=== PATIENT | male | born 1990 | race Caucasian/White ===

== ENCOUNTER 2018-02-01 10:40 | Emergency (ER) | payer OTHER ==
[2018-02-01] MEDS ORDERED: Lidocaine 1% MPF* 2 ML VIAL INJ ONE (11:50)
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
[2018-02-01 12:29] VITALS: BP 99/57
== END 2018-02-01 12:52 | disposition home or self-care (01) ==
LOC: UCCORT 10:40
DX: W26.8XXA Contact with other sharp object(s), not elsewhere classified, initial encounter (principal); Y93.9 Activity, unspecified; Y92.9 Unspecified place or not applicable; S61.210A Laceration without foreign body of right index finger without damage to nail, initial encounter; Z88.0 Allergy status to penicillin; Z88.5 Allergy status to narcotic agent; Z88.8 Allergy status to other drugs, medicaments and biological substances
CPT/HCPCS: 99212; G0463

== ENCOUNTER 2019-02-19 12:21 | Emergency (ER) | payer SELFPAY ==
--- NOTE | 2019-02-19 13:41 | ED ---
Allergic Reaction/Systemic - HPI Summary HPI Summary: Patient arrives by EMS from [facility]. Patient states at 11:50 AM he was stung by a bee on the left hand. The hand immediately began to swell and become red. He states he has had anaphylactic reactions in the past and his last EpiPen use was 2 years ago. He currently does not have an EpiPen. He was able to go to [facility] and at 11:54 AM was given epi. At 11:58 AM, patient was given 50mg Benadryl all IM. EMS obtained IV access en route. Patient states he was having symptoms just to the left hand, but denies any short of breath, throat pain, feelings of throat closing up, difficulty with airway or breathing or other symptoms. He states he feels well at this time after being given the medications. - History of Current Complaint Chief Complaint: EDAllergicReaction Time Seen by Provider: 02/19/19 12:22 Hx Obtained From: Patient Onset/Duration: Sudden Onset Timing: Constant Severity Initially: Moderate Severity Currently: Moderate Pain Intensity: 0 Pain Scale Used: 0-10 Numeric Location: Discrete @ - left hand sting/bee sting Alleviating Factor(s): Antihistamines, Epinephrine Associated Signs And Symptoms: Positive: Negative - Related Hx Possible Reaction To: Insect - Allergies/Home Medications Allergies/Adverse Reactions: Allergies Allergy/AdvReac Type Severity Reaction Status Date / Time codeine Allergy Vomiting Verified 02/19/19 12:31 Penicillins Allergy Vomiting Verified 02/19/19 12:31 promethazine Allergy Palpitation Verified 02/19/19 12:31 s bee stings Allergy Difficulty Uncoded 02/01/18 11:30 Breathing grass and mold Allergy Difficulty Uncoded 02/01/18 11:30 Breathing PMH/Surg Hx/FS Hx/Imm Hx Previously Healthy: Yes Endocrine/Hematology History: Denies: Hx Diabetes Respiratory History: Reports: Hx Asthma - Surgical History Surgery Procedure, Year, and Place: sweat gland in face, ear tubes, tonsils, right arm surgery, spleen mesh - Immunization History Hx Pertussis Vaccination: No Immunizations Up to Date: Yes Infectious Disease History: No Infectious Disease History: Denies: Traveled Outside the [place] in Last 30 Days - Family History Known Family History: Positive: Hypertension, Diabetes - Social History Occupation: Employed Full-time Lives: With Family Alcohol Use: Occasionally Hx Substance Use: No Substance Use Type: Reports: None Hx Tobacco Use: No Smoking Status (MU): Never Smoked Tobacco Review of Systems Negative: Fever, Chills, Fatigue, Skin Diaphoresis Negative: Palpitations, Chest Pain Negative: Shortness Of Breath, Cough Genitourinary: Negative Positive: no symptoms reported, see HPI Negative: Arthralgia, Myalgia Positive: Other - small erytheamtous area to the L hand with slight swelling Neurological: Negative All Other Systems Reviewed And Are Negative: Yes Physical Exam Triage Information Reviewed: Yes Vital Signs On Initial Exam: Initial Vitals Temp Pulse Resp BP Pulse Ox 98.5 F 68 19 124/68 99 02/19/19 12:26 02/19/19 12:26 02/19/19 12:02/19/19 12:02/19/19 12:26 Vital Signs Reviewed: Yes Appearance: Positive: Well-Appearing, Well-Nourished Skin: Positive: Warm, Skin Color Reflects Adequate Perfusion, Other - erythematous area to the L hand Head/Face: Positive: Normal Head/Face Inspection Eyes: Positive: EOMI, SHANTA, Conjunctiva Clear Neck: Positive: Supple, No Lymphadenopathy Respiratory/Lung Sounds: Positive: Clear to Auscultation, Breath Sounds Present Cardiovascular: Positive: RRR, Pulses are Symmetrical in both Upper and Lower Extremities Musculoskeletal: Positive: Normal, Strength/ROM Intact Neurological: Positive: Speech Normal Psychiatric: Positive: Normal, Affect/Mood Appropriate AVPU Assessment: Alert Diagnostics - Vital Signs Vital Signs Temp Pulse Resp BP Pulse Ox 02/19/19 12:26 98.5 F 68 19 124/68 99 - Laboratory Lab Statement: Any lab studies that have been ordered have been reviewed, and results considered in the medical decision making process. Allergic Reaction Course/Dx - Course Course Of Treatment: Patient arrives by way of EMS after Benadryl and epi given subq and I am. IV access was obtained. Patient feels well on arrival, denying any shortness of breath, throat closing symptoms, difficulty with airway or breathing, difficulty swallowing. Symptoms of erythema and itching to the left hand have now since resolved. He is observed for 2 hours since onset of sting. Continues to remain asympomatic and denies SOB or throat sxs. Pt discharged home in good condition. - Diagnoses Differential Diagnosis/HQI/PQRI: Positive: Anaphylaxis, Erythema Multiforme, Local Allergic Reaction Provider Diagnoses: Allergic reaction Discharge ED - Sign-Out/Discharge Documenting (check all that apply): Patient Departure Patient Received Moderate/Deep Sedation with Procedure: No - Discharge Plan Condition: Stable Disposition: HOME Prescriptions: EPINEPHrine [Epipen 2-Reji] 0.3 mg IM SEE INSTRUCTIONS #1 inj Patient Education Materials: Anaphylaxis (ED) Referrals: Darius Melo MD [Primary Care Provider] - Additional Instructions: EpiPen as needed - Billing Disposition and Condition Condition: STABLE Disposition: Home - Attestation Statements Provider Attestation: I was available for consult. This patient was seen by the [facility]. The patient was not presented to, seen by, or examined by me. Roc Travis MD
[2019-02-19 14:04] VITALS: BP 121/69
== END 2019-02-19 14:04 | disposition home or self-care (01) ==
LOC: ED 12:21
DX: T78.40XA Allergy, unspecified, initial encounter (principal); X58.XXXA Exposure to other specified factors, initial encounter; J45.909 Unspecified asthma, uncomplicated; Z79.899 Other long term (current) drug therapy; Z88.5 Allergy status to narcotic agent; Z88.0 Allergy status to penicillin; Z88.8 Allergy status to other drugs, medicaments and biological substances
CPT/HCPCS: 99283

== ENCOUNTER 2019-02-20 12:38 | Emergency (ER) | payer SELFPAY ==
[2019-02-20 13:22] VITALS: BP 110/56
--- NOTE | 2019-02-20 13:54 | UC ---
Hand/Wrist HPI - HPI Summary HPI Summary: was seen at the ER yesterday after an allergic reaction to a bee sting. States R hand has been swelling more since. 2- states last night when he coughed, he felt a pull in his lower back with pain radiating down both legs. States when he pushes on buttock, pain does get relief. - History Of Current Complaint Chief Complaint: UCSkin Stated Complaint: BEE STING LEFT HAND SWOLLEN Time Seen by Provider: 02/20/19 13:33 Hx Obtained From: Patient ?: No Onset/Duration: Sudden Onset, Lasting Days - 1 Severity Initially: Mild Severity Currently: Mild Pain Intensity: 0 Aggravating Factor(s): Movement Associated Signs And Symptoms: Positive: Swelling, Redness - Allergies/Home Medications Allergies/Adverse Reactions: Allergies Allergy/AdvReac Type Severity Reaction Status Date / Time codeine Allergy Vomiting Verified 02/20/19 13:16 Penicillins Allergy Vomiting Verified 02/20/19 13:16 promethazine Allergy Palpitation Verified 02/20/19 13:16 s bee stings Allergy Difficulty Uncoded 02/20/19 13:16 Breathing grass and mold Allergy Difficulty Uncoded 02/20/19 13:16 Breathing Home Medications: Home Medications Naproxen [Naproxen 500 mg tab] 500 mg PO BID PRN 02/20/19 [History Confirmed 01/31] diphenhydrAMINE HCl [Benadryl Allergy 25 MG CAP] 25 mg PO Q6H PRN 02/20/19 [ History Confirmed 02/20/19] PMH/Surg Hx/FS Hx/Imm Hx Previously Healthy: Yes - Surgical History Surgical History: Yes Surgery Procedure, Year, and Place: sweat gland in face, ear tubes, tonsils, right arm surgery, spleen mesh - Family History Known Family History: Positive: Hypertension, Diabetes - Social History Alcohol Use: Occasionally Substance Use Type: None Smoking Status (MU): Never Smoked Tobacco - Immunization History Most Recent Tetanus Shot: Within 10 years Review of Systems All Other Systems Reviewed And Are Negative: Yes Skin: Positive: Other - swelling and redness Musculoskeletal: Positive: Arthralgia, Decreased ROM, Myalgia Is Patient Immunocompromised?: No Physical Exam Triage Information Reviewed: Yes Appearance: Well-Appearing, Well-Nourished, Pain Distress Vital Signs: Initial Vital Signs Temp 98.3 F 09/08/19 13:18 Pulse 60 02/20/19 13:18 Resp 14 02/20/19 13:18 BP 110/56 02/20/19 13:18 Pulse Ox 99 02/20/19 13:18 Vital Signs Reviewed: Yes Eye Exam: Normal ENT Exam: Normal Dental Exam: Normal Neck exam: Normal Respiratory Exam: Normal Cardiovascular Exam: Normal Abdominal Exam: Normal Bowel Sounds: Positive: Present Musculoskeletal: Positive: No Edema, Strength Limited @ - with weight bearing on right side, ROM Limited @ Neurological Exam: Normal Psychological Exam: Normal Skin: Positive: Other - swelling and redness of the left hand Hand/Wrist Course/Dx - Course Course Of Treatment: hx obtained, exam performed ,meds reviewed, treated for allergic reaction and start of cellulitis given information on back stretching and care of his weak back, he has history of herniated disc, this is not a new issue, just has increased pain after sneezing last night, prednisone should helpw with any infalmmation as well. - Differential Dx/Diagnosis Differential Diagnosis/HQI/PQRI: Cellulitis, Sprain, Strain Provider Diagnosis: Bee sting reaction, Low back pain Discharge ED - Sign-Out/Discharge Documenting (check all that apply): Patient Departure All imaging exams completed and their final reports reviewed: No Studies - Discharge Plan Condition: Stable Disposition: HOME Prescriptions: Cephalexin CAP* [Keflex CAP*] 500 mg PO BID #14 cap predniSONE [Prednisone 20 MG TAB] 20 mg PO DAILY #18 tablet Patient Education Materials: Insect Bite or Sting (ED), Chronic Back Pain (DC) Referrals: Darius Melo MD [Primary Care Provider] - Additional Instructions: 1. take the medication as prescribed. 2. once the prednisone stops, if needed you can use a generic zyrtec or claritin antihistamine for continued reaction - Billing Disposition and Condition Condition: STABLE Disposition: Home
[2019-02-20] MEDS ORDERED: predniSONE TAB* 20 MG PO ONE (17:29)
== END 2019-02-20 14:07 | disposition home or self-care (01) ==
LOC: UCCORT 12:38
DX: T63.441D Toxic effect of venom of bees, accidental (unintentional), subsequent encounter (principal); M79.89 Other specified soft tissue disorders; M54.5 Low back pain; Z91.030 Bee allergy status; Z88.5 Allergy status to narcotic agent; Z88.0 Allergy status to penicillin; Z88.8 Allergy status to other drugs, medicaments and biological substances; Z91.048 Other nonmedicinal substance allergy status
CPT/HCPCS: 99212; G0463; J7512